=== PATIENT | female | born 1975 | race American Indian/Alaskan Native ===

== ENCOUNTER 2016-06-05 04:15 | Emergency (ER) | payer BC ==
[2016-06-05 04:30] VITALS: BP 164/62
--- NOTE | 2016-06-05 06:26 | Emergency Department Report ---
HPI - General Chief Complaint: Back Pain/Injury Time Seen by Provider: 06/05/16 05:31 - HPI HPI: 40-year-old female presents today with back pain that has worsened over the past 2 days. Positive for radiation down left leg. Positive for history of sciatica. Patient states that she took one dose of ibuprofen and leftover Flexeril with some relief. Denies numbness, weakness, paresthesias. Denies fever, chills, nausea, vomiting, chest pain, shortness of breath, abdominal pain. ED Past Medical Hx - Past Medical History Previous Medical History?: Yes Hx Hypertension: Yes Hx Asthma: Yes Additional medical history: chf. - Surgical History Past Surgical History?: Yes Additional Surgical History: c sec x3. - Social History Smoking Status: Never Smoker Substance Use Type: None - Medications Home Medications: Home Medications Medication Instructions Recorded Confirmed Last Taken Type Furosemide [Lasix TAB] 20 mg PO QDAY 03/11/14 03/11/14 03/10/14 History Ibuprofen [Motrin] 800 mg PO Q8H PRN #20 tablet 03/11/14 Unknown Rx Lisinopril [Zestril] 40 mg PO 03/11/14 03/11/14 03/10/14 History Metoprolol [Lopressor TAB] 25 mg PO DAILY 03/11/14 03/11/14 03/10/14 History methOCARBAMOL [Robaxin] 500 mg PO BID #10 tab 03/11/14 Unknown Rx traMADol [Ultram] 50 mg PO Q6HR PRN #14 tablet 03/11/14 Unknown Rx Famotidine [Pepcid] 20 mg PO BID #20 tablet 04/25/16 Unknown Rx diphenhydrAMINE [Benadryl CAP] 25 mg PO Q6HR PRN #25 capsule 04/25/16 Unknown Rx methylPREDNISolone [Medrol] 4 mg PO DAILY #1 tab.ds.pk 04/25/16 Unknown Rx Cyclobenzaprine [Flexeril] 10 mg PO TID PRN #20 tablet 06/05/16 Unknown Rx Ibuprofen [Motrin 800 MG tab] 800 mg PO Q8HR PRN #30 tablet 06/05/16 Unknown Rx Prednisone [predniSONE 10 mg 10 mg PO .TAPER #1 tab.ds.pk 06/05/16 Unknown Rx (6-Day Pack, 21 Tabs)] ED Review of Systems ROS: Stated complaint: BACK PAIN Other details as noted in HPI Constitutional: denies: chills, fever, malaise Eyes: denies: eye pain ENT: denies: ear pain, throat pain, congestion Respiratory: denies: cough, shortness of breath, wheezing Cardiovascular: denies: chest pain, palpitations Endocrine: no symptoms reported Gastrointestinal: denies: abdominal pain, nausea, vomiting Musculoskeletal: back pain Skin: denies: rash Neurological: denies: headache, weakness, numbness, paresthesias Physical Exam - Physical Exam Vital Signs: Vital Signs 06/05/16 04:27 Temperature 98.2 F Pulse Rate 71 Respiratory 18 Rate Blood Pressure 164/62 O2 Sat by Pulse 100 Oximetry Physical Exam: GENERAL: The patient is well-developed and well-nourished. Patient is in NAD. HEAD: Normocephalic. Atraumatic. CHEST/LUNGS: Clear to auscultation throughout. HEART/CARDIOVASCULAR: Regular rate and rhythm. No murmurs, rubs or gallops. ABDOMEN: Abdomen is soft, nontender. No guarding or rebound tenderness. EXTREMITIES: Full range of motion. Peripheral pulses intact. Capillary refill less than 2 seconds. BACK: Full ROM. No midline tenderness. Bilateral paraspinal tenderness of lumbar region. Tenderness to palpation of the left sciatic notch. Negative straight leg raise bilaterally. NEURO: Alert and oriented x 3. Normal gait. ED Course Vital Signs 06/05/16 04:27 Temperature 98.2 F Pulse Rate 71 Respiratory 18 Rate Blood Pressure 164/62 O2 Sat by Pulse 100 Oximetry ED Medical Decision Making - Lab Data Vital Signs 06/05/16 04:27 Temperature 98.2 F Pulse Rate 71 Respiratory 18 Rate Blood Pressure 164/62 O2 Sat by Pulse 100 Oximetry - Medical Decision Making 40-year-old female presents today with lower back pain and left-sided sciatica. Patient is in no acute distress at this time. She will be discharged home and is encouraged to follow up with a primary care provider. She will be sent home on Flexeril, ibuprofen, steroid pack and is encouraged to return to the emergency room for any worsening symptoms. Critical care attestation.: If time is entered above; I have spent that time in minutes in the direct care of this critically ill patient, excluding procedure time. ED Disposition Clinical Impression: Low back pain Qualifiers: Chronicity: acute Back pain laterality: bilateral Sciatica presence: with sciatica Sciatica laterality: sciatica of left side Qualified Code(s): M54.42 - Lumbago with sciatica, left side Disposition: DISCHARGED TO HOME OR SELFCARE Is pt being admited?: No Does the pt Need Aspirin: No Condition: Stable Instructions: Sciatica (ED) Additional Instructions: Follow-up with primary care provider. Return to emergency department if symptoms worsen. Prescriptions: Cyclobenzaprine [Flexeril] 10 mg PO TID PRN #20 tablet PRN Reason: Muscle Spasm Ibuprofen [Motrin 800 MG tab] 800 mg PO Q8HR PRN #30 tablet PRN Reason: Pain Prednisone [predniSONE 10 mg (6-Day Pack, 21 Tabs)] 10 mg PO .TAPER #1 tab.ds.pk Forms: Work/School Release Form(ED) Time of Disposition: 06:24
== END 2016-06-05 06:39 | disposition home or self-care (01) ==
LOC: ED 04:15
DX: M54.42 Lumbago with sciatica, left side (principal); I10 Essential (primary) hypertension; J45.909 Unspecified asthma, uncomplicated; I50.9 Heart failure, unspecified
CPT/HCPCS: 99282

== ENCOUNTER 2016-07-27 06:13 | Emergency (ER) | payer BC ==
--- NOTE | 2016-07-27 07:29 | XRay Report ---
LEFT FOOT, 2 views: History: Left mid foot pain. The bony architecture is intact. Bony alignment is normal. No soft tissue abnormalities are seen. The joint spaces appear preserved. Tiny plantar spur. IMPRESSION: Unremarkable left foot.
--- NOTE | 2016-07-27 07:29 | XRay Report ---
LEFT ANKLE, 3 views: History: Left heel and ankle pain.. The bones are well mineralized with normal bony contours and joint alignment. No fractures or destructive changes are noted. There is mild diffuse soft tissue swelling or edema. Tiny plantar spur. IMPRESSION: No acute osseous injury or significant joint pathology. Tiny plantar spur.
--- NOTE | 2016-07-27 07:30 | XRay Report ---
LEFT KNEE, 3 views: History: Left knee pain. The bony architecture is intact without evidence of fracture or dislocation. No significant soft tissue abnormality is seen. IMPRESSION: Normal left knee.
[2016-07-27 07:40] VITALS: BP 147/97
--- NOTE | 2016-07-27 08:10 | Emergency Department Report ---
ED Extremity Problem HPI - General Chief complaint: Extremity Injury, Lower Stated complaint: L ankle pain Time Seen by Provider: 07/27/16 07:46 Source: patient Mode of arrival: Ambulatory Limitations: No Limitations - History of Present Illness Initial comments: PT reports intermittent L ankle pain. 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 PT states she has to wear clogs. PT states the pain was gradual ant intermittent and she has mentioned it to her PCP and she was advised weight loss. PT states over the last 2 months the pain has increased. PT states over the last 3-4 days, her L knee has been hurting. PT states it hurts to walk. PT denies injury or trauma. PT has tried otc medications for this problem but no over all improvement, slight temporary relief MD Complaint: extremity pain, joint paint -: Gradual Location: left History of Same: Yes Severity scale (0 -10): 10 Quality: constant Consistency: constant Improves with: elevation, medication, rest Worsens with: weight bearing, walking Associated Symptoms: denies other symptoms - Related Data Home Medications Medication Instructions Recorded Confirmed Last Taken Furosemide [Lasix TAB] 20 mg PO QDAY 03/11/14 03/11/14 03/10/14 Lisinopril [Zestril TAB] 40 mg PO 03/11/14 03/11/14 03/10/14 Metoprolol [Lopressor TAB] 25 mg PO DAILY 03/11/14 03/11/14 03/10/14 Previous Rx's Medication Instructions Recorded Last Taken Type Ibuprofen [Motrin] 600 mg PO Q8H PRN #15 tablet 07/27/16 Unknown Rx methOCARBAMOL [Robaxin TAB] 500 mg PO Q6H PRN #12 tablet 07/27/16 Unknown Rx traMADol [Ultram] 50 mg PO Q6HR PRN #10 tablet 07/27/16 Unknown Rx Allergies Allergy/AdvReac Type Severity Reaction Status Date / Time lisinopril AdvReac Unknown Verified 04/25/16 08:48 ED Review of Systems ROS: Stated complaint: Other details as noted in HPI Comment: All other systems reviewed and negative Respiratory: denies: shortness of breath Cardiovascular: denies: chest pain Musculoskeletal: arthralgia, other (on lasix for edema ) Skin: denies: rash, change in color ED Past Medical Hx - Past Medical History Hx Hypertension: Yes Hx Asthma: Yes Additional medical history: chf. - Surgical History Additional Surgical History: c sec x3. - Social History Smoking Status: Never Smoker Substance Use Type: None - Medications Home Medications: Home Medications Medication Instructions Recorded Confirmed Last Taken Type Furosemide [Lasix TAB] 20 mg PO QDAY 03/11/14 03/11/14 03/10/14 History Lisinopril [Zestril TAB] 40 mg PO 03/11/14 03/11/14 03/10/14 History Metoprolol [Lopressor TAB] 25 mg PO DAILY 03/11/14 03/11/14 03/10/14 History Ibuprofen [Motrin] 600 mg PO Q8H PRN #15 tablet 07/27/16 Unknown Rx methOCARBAMOL [Robaxin TAB] 500 mg PO Q6H PRN #12 tablet 07/27/16 Unknown Rx traMADol [Ultram] 50 mg PO Q6HR PRN #10 tablet 07/27/16 Unknown Rx ED Physical Exam - General Limitations: No Limitations General appearance: alert, in no apparent distress, obese - Head Head exam: Present: atraumatic, normocephalic - Eye Eye exam: Present: normal appearance - ENT ENT exam: Present: normal exam - Neck Neck exam: Present: normal inspection - Respiratory Respiratory exam: Present: normal lung sounds bilaterally. Absent: respiratory distress, wheezes, accessory muscle use - Cardiovascular Cardiovascular Exam: Present: regular rate, normal heart sounds - Rectal Rectal exam: Present: deferred - Extremities Exam Extremities exam: Present: normal inspection, normal capillary refill. Absent: calf tenderness - Expanded Lower Extremity Exam Left Knee exam: Present: normal inspection, full ROM. Absent: tenderness Lower Leg exam: Present: normal inspection. Absent: tenderness, ecchymosis, dislocation (Heller's test negative nuris ), Michelle's sign Ankle exam: Present: normal inspection, full ROM. Absent: tenderness (pt reports pain to post L ankle. no ttp ), ecchymosis, deformity Foot/Toe exam: Present: normal inspection. Absent: tenderness, swelling, calcaneal tenderness Neuro vascular tendon exam: Present: no vascular compromise. Absent: pulse deficit Gait: Positive: observed and normal - Back Exam Back exam: Present: normal inspection - Neurological Exam Neurological exam: Present: alert, oriented X3 - Psychiatric Psychiatric exam: Present: normal affect, normal mood - Skin Skin exam: Present: warm, dry, intact ED Course Vital Signs 07/27/16 06:13 Temperature 98.1 F Pulse Rate 70 Respiratory 16 Rate Blood Pressure 147/97 O2 Sat by Pulse 100 Oximetry - Reevaluation(s) Reevaluation #1: 07/27/16 08:16 PT aware of XR results and plan of care. PT has no questions at this time. PT is aware she will need to follow up with her PCP. PT is aware that if her pain persists, she may need further imaging (MRI) or physical therapy - Pulse Oximetry Interpretation Digit-Finger Initial Pulse Oximetry Readin Actions Taken: none ED Medical Decision Making - Radiology Data Radiology results: report reviewed NAP on plain films of L ankle, L knee, or L foot - Medical Decision Making PT with intermittent L ankle pain, worse with ambulating. PT reports gait change due to ankle pain. Pt has negative Michelle's sign and negative Heller's test. PT stable for outpt follow up. - Differential Diagnosis stress fx, over use, tendonitis Critical care attestation.: If time is entered above; I have spent that time in minutes in the direct care of this critically ill patient, excluding procedure time. ED Disposition Clinical Impression: Left knee pain Qualifiers: Chronicity: acute Qualified Code(s): M25.562 - Pain in left knee Left ankle pain Qualifiers: Chronicity: chronic Qualified Code(s): M25.572 - Pain in left ankle and joints of left foot; G89.29 - Other chronic pain Disposition: DISCHARGED TO HOME OR SELFCARE Is pt being admited?: No Does the pt Need Aspirin: No Condition: Stable Instructions: Achilles Tendinitis (ED), Musculoskeletal Pain (ED), Knee Pain ( ED) Additional Instructions: RICE Wear compression socks when up and active loosely wrap PIYUSH wrap on L knee and ankle for support Follow up with PCP in 3-5 days May return to work this week, if you wear good supportive shoes (tennis shoes) No clogs, slippers, flip flops No driving or ETOH with Ultram or Robaxin Referrals: LORI TELLEZ MD [Primary Care Provider] - 3-5 Days Time of Disposition: 08:26
== END 2016-07-27 08:50 | disposition home or self-care (01) ==
LOC: ED 06:13
DX: M25.572 Pain in left ankle and joints of left foot (principal); M25.562 Pain in left knee; G89.29 Other chronic pain; J45.909 Unspecified asthma, uncomplicated; I50.9 Heart failure, unspecified; Z88.8 Allergy status to other drugs, medicaments and biological substances; Z98.890 Other specified postprocedural states

== ENCOUNTER 2016-09-25 06:54 | Emergency (ER) | payer BC ==
[2016-09-25 07:03] VITALS: BP 157/101
--- NOTE | 2016-09-25 07:16 | Emergency Department Report ---
Minor Respiratory - HPI Chief Complaint: Upper Respiratory Infection Stated Complaint: COUGH Time Seen by Provider: 09/25/16 07:10 Duration: 3 Days Pain Location: Chest (after coughing , pain is sharp) Minor Respiratory: Yes Sore Throat, Yes Able to Tolerate Fluids, Yes Cough, Yes Sick Contacts, Yes Chest Pain (with cough), Yes Shortness of Breath, No Rhinorrhea, No Ear Pain (ear pressure), No Hemoptysis, No Fever Other History: 41 year old female that comes in for cough, sob that started . She reports that she has been wheezing alittle. She has a history of Asthma. She has been using her inhaler more often. Denies any fever or chill. She does admit to working around someone with cold sx. ED Review of Systems ROS: Stated complaint: COUGH Other details as noted in HPI Constitutional: denies: chills, fever Eyes: denies: eye pain, eye discharge, vision change ENT: denies: ear pain, throat pain Respiratory: cough, shortness of breath, wheezing Cardiovascular: chest pain (with cough). denies: palpitations Endocrine: no symptoms reported Gastrointestinal: denies: abdominal pain, nausea, diarrhea Genitourinary: denies: urgency, dysuria, discharge Musculoskeletal: denies: back pain, joint swelling, arthralgia Skin: denies: rash, lesions Neurological: denies: headache, weakness, paresthesias Psychiatric: denies: anxiety, depression Hematological/Lymphatic: denies: easy bleeding, easy bruising ED Past Medical Hx - Past Medical History Previous Medical History?: Yes Hx Hypertension: Yes Hx Asthma: Yes Additional medical history: chf. - Surgical History Past Surgical History?: Yes Additional Surgical History: c sec x3. - Social History Smoking Status: Never Smoker Substance Use Type: Alcohol - Medications Home Medications: Home Medications Medication Instructions Recorded Confirmed Last Taken Type Furosemide [Lasix TAB] 20 mg PO QDAY 03/11/14 03/11/14 03/10/14 History Metoprolol [Lopressor TAB] 25 mg PO DAILY 03/11/14 03/11/14 03/10/14 History ALBUTEROL NEB's [Proventil 0.083% 2.5 mg IH TID PRN #1 box 09/25/16 Unknown Rx NEBS] Acetaminophen/Codeine [Tylenol 1 tab PO Q4HR PRN #20 tablet 09/25/16 Unknown Rx /Codeine # 3 tab] Minor Respiratory Exam - Exam General: Vital signs noted. No distress. Alert and acting appropriately. HEENT: No Pharyngeal Erythema, No Pharyngeal Exudates, No Moist Mucous Membranes , No Rhinorrhea, No Conjuctival Injection, No Frontal Tenderness, No Maxillary Tenderness Ear: Neither TM Bulge, Neither TM Erythema, Neither EAC Pain, Neither EAC Discharge Neck: Yes Supple, No Adenopathy Lungs: Yes Good Air Exchange, Yes Wheezes, Yes Cough, No Ronchi, No Stridor, No Labored Respirations, No Retractions, No Use of Accessory Muscles, No Other Abnormal Lung Sounds Heart: Yes Regular, No Murmur Abdomen: No Tenderness, No Peritoneal Signs, No Normal Bowel Sounds Skin: No Rash, No Edema Neurologic: Alert and oriented, no deficits. Musculoskeletal: Unremarkable. ED Course Vital Signs 09/25/16 07:00 Temperature 97.7 F Pulse Rate 87 Respiratory 18 Rate Blood Pressure 157/101 [Right] O2 Sat by Pulse 99 Oximetry ED Medical Decision Making - Medical Decision Making Patient's been evaluated by this provider fast track. Discussed with patient that we will refill her albuterol nebulizer solution. We will give her Tylenol 3 for cough suppressant and pain management. 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 Patient verbalized understanding Critical care attestation.: If time is entered above; I have spent that time in minutes in the direct care of this critically ill patient, excluding procedure time. ED Disposition Clinical Impression: Asthma Qualifiers: Asthma severity: unspecified severity Asthma complication type: uncomplicated Qualified Code(s): J45.909 - Unspecified asthma, uncomplicated Disposition: DISCHARGED TO HOME OR SELFCARE Is pt being admited?: No Does the pt Need Aspirin: No Condition: Stable Additional Instructions: Use the Tylenol with codeine for cough suppressant and chest pain from cough. Follow-up with her primary care provider if symptoms persist or does not improve. Using nebulizer treatments as described. 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 Prescriptions: Acetaminophen/Codeine [Tylenol /Codeine # 3 tab] 1 tab PO Q4HR PRN #20 tablet PRN Reason: Pain ALBUTEROL NEB's [Proventil 0.083% NEBS] 2.5 mg IH TID PRN #1 box PRN Reason: Wheezing Referrals: your,provider [Other] - 3-5 Days Forms: Work/School Release Form(ED)
== END 2016-09-25 08:15 | disposition home or self-care (01) ==
LOC: ED 06:54
DX: J45.909 Unspecified asthma, uncomplicated (principal); I10 Essential (primary) hypertension
CPT/HCPCS: 99282

== ENCOUNTER 2016-10-04 07:27 | Outpatient (CLI) | payer BC ==
--- NOTE | 2016-10-04 09:06 | Mammography Report ---
BILATERAL MAMMOGRAM with CAD: HISTORY:Cancer screening. Comparison study is dated July 06, 2012. FINDINGS: The breasts are almost entirely fat (<25% glandular). No mass, distortion, suspicious calcification, or skin change is seen. IMPRESSION: Negative mammogram. There is no mammographic evidence of malignancy. RECOMMENDATION: Follow-up per ACS guidelines. BI-RADS CATEGORY: 1 = Negative ACR BI-RADS MAMMOGRAPHIC CODES: 0 = Needs additional imaging evaluation; 1 = Negative; 2 = Benign; 3 = Probably benign; 4 = Suspicious; 5 = Malignant; 6 = Known biopsy-proven malignancy COMMENT: 1. Dense breast tissue, i.e., adenosis, fibrocystic changes, etc., may obscure an underlying neoplasm. 2. Approximately 10% of cancers are not detected with mammography. 3. A negative mammography report should not delay biopsy if a clinically suspicious mass is present. COMMENT: Patient follow-up letters are generated in [employer].
== END 2016-10-04 07:28 | disposition home or self-care (01) ==
LOC: MAMMO 07:27
PROVIDERS: ATTEND Obstetrics & Gynecology
DX: Z12.31 Encounter for screening mammogram for malignant neoplasm of breast (principal)
CPT/HCPCS: 77067; G0202

== ENCOUNTER 2016-11-01 08:33 | Outpatient (CLI) | payer BC ==
--- NOTE | 2016-11-01 10:22 | Ultrasound Report ---
Transabdominal and transvaginal pelvic ultrasound. History: Menorrhagia/dysmenorrhea. Findings: The uterus measures 11.6 x 5.4 x 6.4 cm. There is a heterogeneous round mass in the anterior upper uterine body measuring 1.6 x 1.9 cm. Endometrial echo measures 16 mm in diameter. The right ovary is normal. The left ovary is not identified, but no left adnexal masses are seen. There is no fluid within the cul-de-sac. Impression: Small uterine fibroid.
== END 2016-11-01 08:34 | disposition home or self-care (01) ==
LOC: SPVWC 08:33
PROVIDERS: ATTEND Obstetrics & Gynecology
DX: D25.9 Leiomyoma of uterus, unspecified (principal)
CPT/HCPCS: 76830; 76856

== ENCOUNTER 2016-12-24 21:57 | Emergency (ER) | payer BC ==
[2016-12-24 22:12] VITALS: BP 164/101
--- NOTE | 2016-12-24 23:41 | Emergency Department Report ---
ED Extremity Problem HPI - General Chief complaint: Extremity Injury, Lower Stated complaint: KNEE PAIN Source: patient Mode of arrival: Ambulatory Limitations: No Limitations - History of Present Illness MD Complaint: joint paint (aggressively worsening right knee pain, atraumatic. Denies calf pain shortness of breath or inspiratory chest pain.) -: Gradual, week(s) Location: right, knee Radiation: none Severity scale (0 -10): 6 Quality: aching Consistency: constant Worsens with: weight bearing, walking Associated Symptoms: denies other symptoms - Related Data Home Medications Medication Instructions Recorded Confirmed Last Taken Furosemide [Lasix TAB] 20 mg PO QDAY 03/11/14 03/11/14 03/10/14 Metoprolol [Lopressor TAB] 25 mg PO DAILY 03/11/14 03/11/14 03/10/14 Previous Rx's Medication Instructions Recorded Last Taken Type ALBUTEROL NEB's [Proventil 0.083% 2.5 mg IH TID PRN #1 box 09/25/16 Unknown Rx NEBS] Acetaminophen/Codeine [Tylenol 1 tab PO Q4HR PRN #20 tablet 09/25/16 Unknown Rx /Codeine # 3 tab] Allergies Allergy/AdvReac Type Severity Reaction Status Date / Time pineapple Allergy Hives Unverified 10/04/16 07:28 lisinopril AdvReac Unknown Verified 04/25/16 08:48 ED Review of Systems ROS: Stated complaint: KNEE PAIN Other details as noted in HPI Constitutional: no symptoms reported Eyes: denies: eye pain, eye discharge, vision change ENT: denies: ear pain, throat pain Respiratory: denies: cough, shortness of breath, SOB with exertion, SOB at rest , wheezing Cardiovascular: denies: chest pain, palpitations, dyspnea on exertion, orthopnea , edema, syncope Gastrointestinal: denies: abdominal pain, nausea, vomiting, diarrhea Musculoskeletal: arthralgia. denies: back pain, joint swelling Skin: denies: rash, lesions Neurological: denies: headache, weakness, numbness, paresthesias ED Past Medical Hx - Past Medical History Previous Medical History?: Yes Hx Hypertension: Yes Hx Asthma: Yes Additional medical history: chf. - Surgical History Past Surgical History?: Yes Additional Surgical History: c sec x3. - Social History Smoking Status: Former Smoker Substance Use Type: None - Medications Home Medications: Home Medications Medication Instructions Recorded Confirmed Last Taken Type Furosemide [Lasix TAB] 20 mg PO QDAY 03/11/14 03/11/14 03/10/14 History Metoprolol [Lopressor TAB] 25 mg PO DAILY 03/11/14 03/11/14 03/10/14 History ALBUTEROL NEB's [Proventil 0.083% 2.5 mg IH TID PRN #1 box 09/25/16 Unknown Rx NEBS] Acetaminophen/Codeine [Tylenol 1 tab PO Q4HR PRN #20 tablet 09/25/16 Unknown Rx /Codeine # 3 tab] ED Physical Exam - General Limitations: No Limitations General appearance: alert, in no apparent distress - Head Head exam: Present: atraumatic, normocephalic - Eye Eye exam: Present: normal appearance, PERRL, EOMI - ENT ENT exam: Present: mucous membranes moist - Neck Neck exam: Present: normal inspection - Respiratory Respiratory exam: Present: normal lung sounds bilaterally. Absent: respiratory distress - Cardiovascular Cardiovascular Exam: Present: regular rate - GI/Abdominal GI/Abdominal exam: Present: soft. Absent: distended, tenderness, guarding, rebound - Extremities Exam Extremities exam: Present: other (no ligamentous instability, no erythema, no swelling, positive Apley test. Negative drawer test. Neurovascular motor intact distal to pain good 2 point discrimination.) - Back Exam Back exam: Present: normal inspection. Absent: CVA tenderness (R), CVA tenderness (L) - Neurological Exam Neurological exam: Present: alert, oriented X3, CN II-XII intact, normal gait - Skin Skin exam: Present: warm, dry, intact, normal color. Absent: rash, erythema ED Course Vital Signs 12/24/16 22:07 Temperature 98.5 F Pulse Rate 74 Respiratory 18 Rate Blood Pressure 164/101 O2 Sat by Pulse 99 Oximetry - Reevaluation(s) Reevaluation #1: 12/24/16 23:48 Discussed findings with patient , patient states she needs no prescriptions or work note. Just wanted an x-ray so that she can then follow up with Orth O and proceed to MRI. Critical care attestation.: If time is entered above; I have spent that time in minutes in the direct care of this critically ill patient, excluding procedure time. ED Disposition Clinical Impression: Right knee pain Disposition: DC-01 TO HOME OR SELFCARE Is pt being admited?: No Condition: Stable Instructions: Knee Pain (ED) Referrals: EDINSON LIMON MD [Primary Care Provider] - 3-5 Days SHAN RODRIGUEZ MD [Staff Physician] - 3-5 Days
--- NOTE | 2016-12-25 00:07 | XRay Report ---
FINAL REPORT PROCEDURE: XR KNEE 1-2V LT TECHNIQUE: LEFT knee radiographs, AP and lateral views. CPT 43698 HISTORY: left knee pain COMPARISON: No prior studies are available for comparison. FINDINGS: Fracture (s) and/or Dislocation(s): None . Alignment: Normal . Joint space(s): Normal . Soft tissues: Normal . Bone mineralization: Normal . Foreign bodies: None . IMPRESSION: Normal Examination.
== END 2016-12-25 00:05 | disposition home or self-care (01) ==
LOC: ED 21:57
DX: M25.562 Pain in left knee (principal); M25.561 Pain in right knee; I10 Essential (primary) hypertension; J45.909 Unspecified asthma, uncomplicated; Z87.891 Personal history of nicotine dependence; Z91.018 Allergy to other foods; Z88.8 Allergy status to other drugs, medicaments and biological substances; X58.XXXA Exposure to other specified factors, initial encounter; Y93.89 Activity, other specified; Y99.8 Other external cause status; Y92.89 Other specified places as the place of occurrence of the external cause
CPT/HCPCS: 99283

== ENCOUNTER 2018-11-05 20:22 | Emergency (ER) | payer BC, OTHER ==
[2018-11-05] MEDS ORDERED: PROVENTIL IH ONE (20:35)
[2018-11-05] MEDS ORDERED: ATROVENT IH ONE (20:35)
[2018-11-05] MEDS ORDERED: DECADRON IM ONE (20:35)
[2018-11-05 20:36] VITALS: BP 167/92
--- NOTE | 2018-11-05 20:37 | Emergency Department Report ---
Blank Doc - Documentation Documentation: This is a 43-year-old female that presents with wheezing and cough. This initial assessment/diagnostic orders/clinical plan/treatment(s) is/are subject to change based on patient's health status, clinical progression and re- assessment by fellow clinical providers in the ED. Further treatment and workup at subsequent clinical providers discretion. Patient/guardians urged not to elope from the ED as their condition may be serious if not clinically assessed and managed. Initial orders include: 1- Patient sent to [facility] for further evaluation and treatment 2- breathing treatment/steroids 3- CXR
--- NOTE | 2018-11-05 21:27 | Emergency Department Report ---
Minor Respiratory - HPI Chief Complaint: Upper Respiratory Infection Stated Complaint: ASTHMA WHEEZING COUGH Time Seen by Provider: 11/05/18 20:34 Duration: 3 Days Severity: moderate Minor Respiratory: Yes Able to Tolerate Fluids, Yes Cough, Yes Shortness of Breath, No Rhinorrhea, No Sore Throat, No Ear Pain, No Sick Contacts, No Hemoptysis, No Chest Pain, No Fever Other History: This is a 43-year-old -Polish female presents to the emergency room with shortness of breath and wheezing. Past medical history of asthma and hypertension. Patient states symptoms started 3 days ago with a productive cough, she feels, shortness of breath. Patient reports shortness of breath with exertion over the past 24 hours. She was taken cold and cough medication and using nebulizer treatments for the past 2 days. Patient states she will have relief as long as she was under her nebulizer machine and his symptoms would return. Patient states she called her primary care physician Dr. Limon and unable to make an appointment. She denies chest pain, palpitations, weakness, nausea, or vomiting. ED Review of Systems ROS: Stated complaint: ASTHMA WHEEZING COUGH Other details as noted in HPI Constitutional: chills. denies: fever ENT: denies: ear pain, throat pain Respiratory: cough, shortness of breath, SOB with exertion. denies: wheezing Cardiovascular: denies: chest pain, palpitations Gastrointestinal: denies: abdominal pain, nausea, diarrhea Musculoskeletal: denies: back pain, joint swelling, arthralgia Skin: denies: rash, lesions Neurological: denies: headache, weakness, paresthesias Psychiatric: denies: anxiety, depression ED Past Medical Hx - Past Medical History Previous Medical History?: Yes Hx Hypertension: Yes Hx Asthma: Yes Additional medical history: fam hx CHF - Surgical History Additional Surgical History: c sec x3. - Social History Smoking Status: Never Smoker Substance Use Type: Alcohol - Medications Home Medications: Home Medications Medication Instructions Recorded Confirmed Last Taken Type Furosemide [Lasix TAB] 20 mg PO QDAY 03/11/14 03/11/14 03/10/14 History Metoprolol [Lopressor TAB] 25 mg PO DAILY 03/11/14 03/11/14 03/10/14 History ALBUTEROL NEB's [Proventil 0.083% 2.5 mg IH TID PRN #1 box 09/25/16 Unknown Rx NEBS] Acetaminophen/Codeine [Tylenol 1 tab PO Q4HR PRN #20 tablet 09/25/16 Unknown Rx /Codeine # 3 tab] ALBUTEROL Inhaler (OR & NICU) 2 puff IH QID PRN #1 inhalation 11/05/18 Unknown Rx [ProAir HFA Inhaler] Benzonatate [Tessalon Perles] 100 mg PO Q8HR PRN #30 capsule 11/05/18 Unknown Rx Prednisone [predniSONE 10 mg 10 mg PO .TAPER #1 tab.ds.pk 11/05/18 Unknown Rx (6-Day Pack, 21 Tabs)] Minor Respiratory Exam - Exam General: Vital signs noted. No distress. Alert and acting appropriately. HEENT: Yes Moist Mucous Membranes, Yes Rhinorrhea (turbinate is turbinates mildly congested with clear discharge), No Pharyngeal Erythema, No Pharyngeal Exudates, No Conjuctival Injection, No Frontal Tenderness, No Maxillary Tenderness Ear: Neither TM Bulge, Neither TM Erythema, Neither EAC Pain, Neither EAC Discharge Neck: Yes Supple, No Adenopathy Lungs: Yes Wheezes, No Good Air Exchange, No Ronchi, No Stridor, No Cough, No Labored Respirations, No Retractions, No Use of Accessory Muscles, No Other Abnormal Lung Sounds Heart: Yes Regular, No Murmur Abdomen: Yes Normal Bowel Sounds, No Tenderness, No Peritoneal Signs Skin: No Rash, No Edema Neurologic: Alert and oriented, no deficits. Musculoskeletal: Unremarkable. ED Course Vital Signs 11/05/18 20:27 Temperature 98.7 F Pulse Rate 95 H Respiratory 18 Rate Blood Pressure 167/92 ED Medical Decision Making - Radiology Data Radiology results: report reviewed PROCEDURE: XR CHEST ROUTINE 2V TECHNIQUE: PA and lateral chest radiographs were obtained. HISTORY: cough COMPARISONS: None. FINDINGS: Heart: Normal. Mediastinum/Vessels: Normal. Lungs/Pleural space: Normal. Bony thorax: No acute osseous abnormality. IMPRESSION: Normal examination. - Medical Decision Making Patient examined by me and in no acute distress. Past medical history of hypertension and asthma. Vitals stable. Given Proventil, Atrovent treatment once and Decadron 10 mg IM once in ER. Wheezes resolved and patient reports feeling better. Asthma exacerbation and upper respiratory infection. Start prednisone taper, albuterol, and Tessalon Perles. Discharged home stable. Encouraged to do supportive care for URI. No medication ordered. Return to work tomorrow. Critical care attestation.: If time is entered above; I have spent that time in minutes in the direct care of this critically ill patient, excluding procedure time. ED Disposition Clinical Impression: Cough Asthma exacerbation Qualifiers: Asthma severity: mild Asthma persistence: intermittent Qualified Code(s): J45.21 - Mild intermittent asthma with (acute) exacerbation Upper respiratory infection Qualifiers: URI type: acute nasopharyngitis (common cold) Qualified Code(s): J00 - Acute nasopharyngitis [common cold] Disposition: TO HOME OR SELFCARE Is pt being admited?: No Does the pt Need Aspirin: No Condition: Stable Instructions: Asthma (ED), Upper Respiratory Infection (ED), Cold Symptoms (ED) Additional Instructions: Complete full course of prednisone steroids as prescribed. Symptoms are most likely coming from for infection. These infections typically do not give antibiotics. He is to take ibuprofen every 6 hours alternated with Tylenol every 4 hours pain. You may not feel like eating which is to be expected. Try eating a bland diet as tolerated. Wash hands frequently. F/U with Primary Care Provider. Return to ER if fever, SOB, or difficulty breathing after 48 hours of supportive care. Prescriptions: Prednisone [predniSONE 10 mg (6-Day Pack, 21 Tabs)] 10 mg PO .TAPER #1 tab.ds.pk ALBUTEROL Inhaler (OR & NICU) [ProAir HFA Inhaler] 2 puff IH QID PRN #1 inhalation PRN Reason: Shortness Of Breath Benzonatate [Tessalon Perles] 100 mg PO Q8HR PRN #30 capsule PRN Reason: Cough Referrals: EDINSON LIMON MD [Staff Physician] - 3-5 Days Forms: Work/School Release Form(ED) Time of Disposition: 22:51
--- NOTE | 2018-11-05 22:38 | XRay Report ---
PROCEDURE: XR CHEST ROUTINE 2V TECHNIQUE: PA and lateral chest radiographs were obtained. HISTORY: cough COMPARISONS: None. FINDINGS: Heart: Normal. Mediastinum/Vessels: Normal. Lungs/Pleural space: Normal. Bony thorax: No acute osseous abnormality. IMPRESSION: Normal examination. This document is electronically signed by Pepe Palmer MD., November 05 2018 10:36:19 PM ET
== END 2018-11-05 22:56 | disposition home or self-care (01) ==
LOC: ED 20:22
DX: J45.901 Unspecified asthma with (acute) exacerbation (principal); J06.9 Acute upper respiratory infection, unspecified; I10 Essential (primary) hypertension; Z79.899 Other long term (current) drug therapy; Z88.8 Allergy status to other drugs, medicaments and biological substances; Z91.018 Allergy to other foods
CPT/HCPCS: 71046; 94640; 96372; 99283; J1100

== ENCOUNTER 2018-12-10 21:55 | Emergency (ER) | payer OTHER ==
--- NOTE | 2018-12-10 22:08 | Emergency Department Report ---
Blank Doc - Documentation Documentation: This is a 43-year-old female that presents with left ankle pain s/p twisting it. This initial assessment/diagnostic orders/clinical plan/treatment(s) is/are subject to change based on patient's health status, clinical progression and re- assessment by fellow clinical providers in the ED. Further treatment and workup at subsequent clinical providers discretion. Patient/guardians urged not to elope from the ED as their condition may be serious if not clinically assessed and managed. Initial orders include: 1- Patient sent to [facility] for further evaluation and treatment 2- xray
[2018-12-10 22:11] VITALS: BP 189/86
--- NOTE | 2018-12-10 23:30 | XRay Report ---
LEFT ANKLE, 3 VIEWS 03/12/2019 INDICATION / CLINICAL INFORMATION: pain. COMPARISON: None available. FINDINGS: No skeletal or soft tissue abnormality. Ankle mortise is normal. Signer Name: Joshua Garcia MD Signed: 12/10/2018 11:26 PM Workstation Name: [id number]
[2018-12-10] MEDS ORDERED: IBUPROFEN PO ONE (23:47)
--- NOTE | 2018-12-10 23:47 | Emergency Department Report ---
ED Lower Extremity HPI - General Chief Complaint: Extremity Injury, Lower Stated Complaint: LEFT ANKLE INJURY Time Seen by Provider: 12/10/18 22:07 Source: patient Mode of arrival: Ambulatory Limitations: No Limitations - History of Present Illness Initial Comments: Mrs. Fisher is a very pleasant 43-year-old female who injured her left ankle while walking down the steps. She has moderately severe heel pain radiating to the Achilles tendon. She felt as if her ankle ligament stretched. No other injury. Complaint: ankle injury -: This afternoon Injury: Ankle: Left Place: work Severity: mild Worsens With: weight bearing Context: other (while walking) Associated Symptoms: able to partially bear weight - Related Data Home Medications Medication Instructions Recorded Confirmed Last Taken Furosemide [Lasix TAB] 20 mg PO QDAY 03/11/14 03/11/14 03/10/14 Metoprolol [Lopressor TAB] 25 mg PO DAILY 03/11/14 03/11/14 03/10/14 Previous Rx's Medication Instructions Recorded Last Taken Type ALBUTEROL NEB's [Proventil 0.083% 2.5 mg IH TID PRN #1 box 09/25/16 Unknown Rx NEBS] Acetaminophen/Codeine [Tylenol 1 tab PO Q4HR PRN #20 tablet 09/25/16 Unknown Rx /Codeine # 3 tab] ALBUTEROL Inhaler (OR & NICU) 2 puff IH QID PRN #1 inhalation 11/05/18 Unknown Rx [ProAir HFA Inhaler] Benzonatate [Tessalon Perles] 100 mg PO Q8HR PRN #30 capsule 11/05/18 Unknown Rx Prednisone [predniSONE 10 mg 10 mg PO .TAPER #1 tab.ds.pk 11/05/18 Unknown Rx (6-Day Pack, 21 Tabs)] Allergies Allergy/AdvReac Type Severity Reaction Status Date / Time pineapple Allergy Hives Unverified 10/04/16 07:28 lisinopril AdvReac Unknown Verified 04/25/16 08:48 ED Review of Systems ROS: Stated complaint: LEFT ANKLE INJURY Other details as noted in HPI Constitutional: denies: fever, malaise Skin: denies: rash, lesions Neurological: denies: paresthesias Hematological/Lymphatic: denies: easy bleeding, easy bruising ED Past Medical Hx - Past Medical History Previous Medical History?: Yes Hx Hypertension: Yes Hx Asthma: Yes Additional medical history: fam hx CHF - Surgical History Past Surgical History?: Yes Additional Surgical History: c sec x3., Tubal Ligation 2008 - Social History Smoking Status: Never Smoker - Medications Home Medications: Home Medications Medication Instructions Recorded Confirmed Last Taken Type Furosemide [Lasix TAB] 20 mg PO QDAY 03/11/14 03/11/14 03/10/14 History Metoprolol [Lopressor TAB] 25 mg PO DAILY 03/11/14 03/11/14 03/10/14 History ALBUTEROL NEB's [Proventil 0.083% 2.5 mg IH TID PRN #1 box 09/25/16 Unknown Rx NEBS] Acetaminophen/Codeine [Tylenol 1 tab PO Q4HR PRN #20 tablet 09/25/16 Unknown Rx /Codeine # 3 tab] ALBUTEROL Inhaler (OR & NICU) 2 puff IH QID PRN #1 inhalation 11/05/18 Unknown Rx [ProAir HFA Inhaler] Benzonatate [Tessalon Perles] 100 mg PO Q8HR PRN #30 capsule 11/05/18 Unknown Rx Prednisone [predniSONE 10 mg 10 mg PO .TAPER #1 tab.ds.pk 11/05/18 Unknown Rx (6-Day Pack, 21 Tabs)] ED Physical Exam - General Limitations: No Limitations General appearance: alert, in no apparent distress - Head Head exam: Present: atraumatic, normocephalic - Expanded Lower Extremity Exam Left Lower Leg exam: Present: normal inspection Ankle exam: Present: tenderness. Absent: swelling, abrasion, laceration, crepidus, dislocation, erythema, anterior draw sign Foot/Toe exam: Present: tenderness Neuro vascular tendon exam: Present: no vascular compromise 1 - Tenderness at the Achilles tendon - Neurological Exam Neurological exam: Present: alert, oriented X3 ED Course Vital Signs 12/10/18 22:08 Temperature 97.7 F Pulse Rate 77 Respiratory 20 Rate Blood Pressure 189/86 O2 Sat by Pulse 98 Oximetry ED Lower Extremity MDM - Radiology Data Radiology results: report reviewed left Ankle radiographs no acute process according to radiology report - Medical Decision Making Left ankle sprain with Achilles tendinitis question we recommended nonweightbearing. However patient politely declined crutches. She understands the risk of Achilles tendon tear with full weightbearing. Rusty wrap was applied to the affected extremity under my supervision. After application the extremity was neurovascularly intact with acceptable alignment. Referred to orthopedic surgeon Critical care attestation.: If time is entered above; I have spent that time in minutes in the direct care of this critically ill patient, excluding procedure time. ED Disposition Clinical Impression: High ankle sprain, Achilles tendinitis, left leg Disposition: DC-01 TO HOME OR SELFCARE Is pt being admited?: No Does the pt Need Aspirin: No Condition: Stable Instructions: Achilles Tendinitis (ED), Ankle Sprain (ED) Referrals: SHAN RODRIGUEZ MD [Staff Physician] - 3-5 Days
== END 2018-12-11 | disposition home or self-care (01) ==
LOC: ED 21:55
DX: S93.402A Sprain of unspecified ligament of left ankle, initial encounter (principal); M76.62 Achilles tendinitis, left leg; I10 Essential (primary) hypertension; J45.909 Unspecified asthma, uncomplicated; Z98.51 Tubal ligation status; Z79.899 Other long term (current) drug therapy; Z88.8 Allergy status to other drugs, medicaments and biological substances; Z91.018 Allergy to other foods; X58.XXXA Exposure to other specified factors, initial encounter; Y93.89 Activity, other specified; Y92.89 Other specified places as the place of occurrence of the external cause; Y99.8 Other external cause status
CPT/HCPCS: 99283

== ENCOUNTER 2021-08-07 04:15 | Emergency (ER) | payer OTHER ==
[2021-08-07 04:45] VITALS: BP 173/92
[2021-08-07] MEDS ORDERED: dexAMETHasone 20 MG/5 ML VIAL IM ONE (05:19)
[2021-08-07] MEDS ORDERED: KETOROLAC 60 MG/2 ML INJ IM ONE (05:19)
--- NOTE | 2021-08-07 05:25 | Emergency Department Report ---
ED Back Pain/Injury HPI - General Chief Complaint: Pain General Stated Complaint: RT HIP PAIN Source: patient Limitations: No Limitations - History of Present Illness Initial Comments: Patient is a 46-year-old -[place] female with a history of chronic degenerative lumbar disc disease, morbid obesity, hypertension and asthma who presents to the ED with complaint of acute exacerbation of her chronic low back pain that radiates to the right leg for the last 1 week, worse in the last 2 days. Patient states that she is currently on [place] 5 mg - 325 mg with cyclobenzaprine 10 mg as needed. Patient states that these medications have not helped control her pain. Patient denies dizziness, syncope, fever, chills, dysuria, urinary frequency and urgency, fall, heavy lifting, chest pain or shortness of breath, abdominal pain, numbness and tingling or weakness of lower extremities bilaterally or urinary or bowel incontinence and saddle paresthesia. MD Complaint: back pain (Lower back pain that radiates to the right leg) -: Gradual, year(s) (2) Similar Symptoms Previously: Yes (Chronic low back pain with sciatica) Place: home Radiation: right leg Severity: severe Severity scale (0 -10): 8 Quality: sharp, aching Consistency: constant Improves With: none Worsens With: movement, walking Context: turning/twisting, bending Associated Symptoms: denies other symptoms. denies: confusion, weakness, chest pain, numbness, difficulty walking, cough, difficulty urinating, diaphoresis, constipation, headaches, abdominal pain, loss of appetite, malaise, nausea/vomiting, rash, seizure, shortness of breath - Related Data Home Medications Medication Instructions Recorded Confirmed Last Taken Furosemide [Lasix TAB] 20 mg PO QDAY 03/11/14 03/11/14 03/10/14 Metoprolol [Lopressor TAB] 25 mg PO DAILY 03/11/14 03/11/14 03/10/14 Previous Rx's Medication Instructions Recorded Last Taken Type ALBUTEROL NEB's [Proventil 0.083% 2.5 mg IH TID PRN #1 box 09/25/16 Unknown Rx NEBS] Acetaminophen/Codeine [Tylenol 1 tab PO Q4HR PRN #20 tablet 09/25/16 Unknown Rx /Codeine # 3 tab] Albuterol Mdi (or & Nicu Only) 2 puff IH QID PRN #1 inhalation 11/05/18 Unknown Rx [ProAir HFA Inhaler] Benzonatate [Tessalon Perles] 100 mg PO Q8HR PRN #30 capsule 11/05/18 Unknown Rx Prednisone [predniSONE 10 mg 10 mg PO .TAPER #1 tab.ds.pk 11/05/18 Unknown Rx (6-Day Pack, 21 Tabs)] Gabapentin 300 mg PO QHS PRN #60 cap 08/07/21 Unknown Rx Naproxen 500 mg PO Q12H PRN #30 tab 08/07/21 Unknown Rx predniSONE [Deltasone] 60 mg PO QDAY #15 tab 08/07/21 Unknown Rx Allergies Allergy/AdvReac Type Severity Reaction Status Date / Time latex Allergy Itching Verified 08/07/21 04:41 pineapple Allergy Hives Unverified 10/04/16 07:28 lisinopril AdvReac Unknown Verified 04/25/16 08:48 ED Review of Systems ROS: Stated complaint: RT HIP PAIN Other details as noted in HPI Constitutional: denies: chills, fever Eyes: denies: eye pain, eye discharge, vision change ENT: denies: ear pain, throat pain Respiratory: denies: cough, shortness of breath, wheezing Cardiovascular: denies: chest pain, palpitations Endocrine: no symptoms reported Gastrointestinal: denies: abdominal pain, nausea, vomiting, diarrhea Genitourinary: denies: urgency, dysuria, discharge Musculoskeletal: back pain (lower back pain that radiates to the right leg), arthralgia (Right hip pain). denies: joint swelling Skin: denies: rash, lesions Neurological: denies: headache, weakness, paresthesias Psychiatric: denies: anxiety, depression Hematological/Lymphatic: denies: easy bleeding, easy bruising ED Past Medical Hx - Past Medical History Previous Medical History?: Yes Hx Hypertension: Yes Hx Asthma: Yes Additional medical history: fam hx CHF morbid obesity; - Surgical History Past Surgical History?: Yes Additional Surgical History: c sec x3., Tubal Ligation 2008 - Social History Smoking Status: Never Smoker Substance Use Type: None - Medications Home Medications: Home Medications Medication Instructions Recorded Confirmed Last Taken Type Furosemide [Lasix TAB] 20 mg PO QDAY 03/11/14 03/11/14 03/10/14 History Metoprolol [Lopressor TAB] 25 mg PO DAILY 03/11/14 03/11/14 03/10/14 History ALBUTEROL NEB's [Proventil 0.083% 2.5 mg IH TID PRN #1 box 09/25/16 Unknown Rx NEBS] Acetaminophen/Codeine [Tylenol 1 tab PO Q4HR PRN #20 tablet 09/25/16 Unknown Rx /Codeine # 3 tab] Albuterol Mdi (or & Nicu Only) 2 puff IH QID PRN #1 inhalation 11/05/18 Unknown Rx [ProAir HFA Inhaler] Benzonatate [Tessalon Perles] 100 mg PO Q8HR PRN #30 capsule 11/05/18 Unknown Rx Prednisone [predniSONE 10 mg 10 mg PO .TAPER #1 tab.ds.pk 11/05/18 Unknown Rx (6-Day Pack, 21 Tabs)] Gabapentin 300 mg PO QHS PRN #60 cap 08/07/21 Unknown Rx Naproxen 500 mg PO Q12H PRN #30 tab 08/07/21 Unknown Rx predniSONE [Deltasone] 60 mg PO QDAY #15 tab 08/07/21 Unknown Rx ED Physical Exam - General Limitations: No Limitations General appearance: alert, in no apparent distress - Head Head exam: Present: atraumatic, normocephalic, normal inspection - Eye Eye exam: Present: normal appearance, PERRL, EOMI Pupils: Present: normal accommodation - ENT ENT exam: Present: normal exam, normal orophraynx, mucous membranes moist, TM's normal bilaterally, normal external ear exam - Neck Neck exam: Present: normal inspection, full ROM. Absent: tenderness - Respiratory Respiratory exam: Present: normal lung sounds bilaterally. Absent: respiratory distress, wheezes, rales, rhonchi, stridor, chest wall tenderness, accessory muscle use, decreased breath sounds, prolonged expiratory - Cardiovascular Cardiovascular Exam: Present: regular rate, normal rhythm, normal heart sounds. Absent: systolic murmur, diastolic murmur, rubs, gallop - GI/Abdominal GI/Abdominal exam: Present: soft, normal bowel sounds. Absent: tenderness, guarding, rebound, hyperactive bowel sounds, organomegaly, mass - Extremities Exam Extremities exam: Present: normal inspection, full ROM, tenderness (Palpable right hip tenderness), normal capillary refill. Absent: joint swelling - Back Exam Back exam: Present: normal inspection, full ROM, tenderness (Palpable lumbosacral paraspinal musculoskeletal tenderness), muscle spasm, paraspinal tenderness. Absent: CVA tenderness (R), CVA tenderness (L), vertebral tenderness, rash noted - Neurological Exam Neurological exam: Present: alert, oriented X3, CN II-XII intact, normal gait, reflexes normal - Psychiatric Psychiatric exam: Present: normal affect, normal mood - Skin Skin exam: Present: warm, dry, intact, normal color. Absent: rash ED Course Vital Signs 08/07/21 04:37 Temperature 97.7 F Pulse Rate 72 Respiratory 18 Rate Blood Pressure 173/92 [Left] O2 Sat by Pulse 98 Oximetry ED Medical Decision Making - Medical Decision Making This is a 46-year-old -[place] female with a history of chronic degenerative lumbar disc disease, morbid obesity, hypertension and asthma who presents to the ED with complaint of acute exacerbation of her chronic low back pain that radiates to the right leg for the last 1 week, worse in the last 2 days. Patient states that she is currently on [place] 5 mg - 325 mg with cy clobenzaprine 10 mg as needed. Patient states that these medications have not helped control her pain. In the ED, patient is alert and oriented x3 and is not in any distress. Patient was treated for pain in the ED and on reevaluation, patient's pain is well controlled medication. Patient will discharge home on anti-inflammatory medications and advised to follow-up with her primary care physician in 5 to 7 days for reevaluation or return to the ED immediately if symptoms get worse. - Differential Diagnosis Chronic back pain; chronic sciatica; muscle spasm; lumbar disc disease Critical care attestation.: If time is entered above; I have spent that time in minutes in the direct care of this critically ill patient, excluding procedure time. ED Disposition Clinical Impression: Spasm of muscle of lower back, Lumbar disc disease with radiculopathy Chronic low back pain with right-sided sciatica Qualifiers: Back pain laterality: right Qualified Code(s): M54.41 - Lumbago with sciatica, right side; G89.29 - Other chronic pain Disposition: HOME / SELF CARE / HOMELESS Is pt being admited?: No Does the pt Need Aspirin: No Condition: Stable Instructions: Muscle Cramps and Spasms, [id number], Degenerative Disk Disease, Sciatica, [id number], Chronic Back Pain, [id number], Back Injury Prevention, [id number] Additional Instructions: Your symptoms are likely due to chronic degenerative lumbar disc disease, muscle strain and muscle spasm as well as sciatica pain. Therefore take medication with food, drink plenty fluids and follow-up with your primary care physician in 7 to 10 days for reevaluation. Return to the ED immediately if symptoms get worse. Prescriptions: Gabapentin 300 mg PO QHS PRN #60 cap PRN Reason: sciatica predniSONE [Deltasone] 60 mg PO QDAY #15 tab Naproxen 500 mg PO Q12H PRN #30 tab PRN Reason: Pain , Severe (7-10) Referrals: HUDSON NEVES MD [Staff Physician] - 7-10 days Time of Disposition: 05:28 Print Language: YORUBA
== END 2021-08-07 05:58 | disposition home or self-care (01) ==
LOC: ED 04:15
DX: M54.16 Radiculopathy, lumbar region (principal); M62.830 Muscle spasm of back; M54.41 Lumbago with sciatica, right side; I10 Essential (primary) hypertension; J45.909 Unspecified asthma, uncomplicated; Z98.890 Other specified postprocedural states; Z91.02 Food additives allergy status; Z91.040 Latex allergy status; Z91.09 Other allergy status, other than to drugs and biological substances
CPT/HCPCS: 96372; 99282; J1100; J1885

== ENCOUNTER 2022-01-01 03:03 | Emergency (ER) | payer OTHER ==
[2022-01-01] MEDS ORDERED: dexAMETHasone 20 MG/5 ML VIAL IM ONE (04:46)
[2022-01-01] MEDS ORDERED: KETOROLAC 60 MG/2 ML INJ IM ONE (04:46)
--- NOTE | 2022-01-01 04:46 | Emergency Department Report ---
ED Extremity Problem HPI - General Chief complaint: Extremity Injury, Lower Stated complaint: RIGHT HIP PAIN Source: patient Mode of arrival: Ambulatory Limitations: No Limitations - History of Present Illness Initial comments: Patient is a 46-year-old -[place] female with a history of morbid obesity, chronic low back pain with sciatica, chronic osteoarthritis, hyperten antonio and asthma presents to the ED with complaint of acute exacerbation of her chronic hip pain for the last 2 weeks, worse in the last 2 days. Patient states that the pain is constant and persistent and especially worse in the morning when she wakes up or during movement. Patient states that the pain is typical of her chronic pain due to her chronic osteoarthritis. Patient denies fall, traumatic injury, nausea and vomiting, chest pain or shortness of breath, heavy lifting, numbness and tingling or weakness of lower extremities bilaterally. MD Complaint: extremity pain (right hip pain), joint paint (right hip pain) -: Gradual, year(s) (1) Location: right, lower extremity (right hip pain) History of Same: Yes (chronic pain) -: Yes arthralgia (right hip) Severity scale (0 -10): 8 Quality: aching, sharp Consistency: constant Worsens with: weight bearing, walking, exertion, palpation Associated Symptoms: denies other symptoms, arthralgias. denies: chest pain, shortness of breath, fever, myalgias - Related Data Home Medications Medication Instructions Recorded Confirmed Last Taken Furosemide [Lasix TAB] 20 mg PO QDAY 03/11/14 03/11/14 03/10/14 Metoprolol [Lopressor TAB] 25 mg PO DAILY 03/11/14 03/11/14 03/10/14 Previous Rx's Medication Instructions Recorded Last Taken Type ALBUTEROL NEB's [Proventil 0.083% 2.5 mg IH TID PRN #1 box 09/25/16 Unknown Rx NEBS] Acetaminophen/Codeine [Tylenol 1 tab PO Q4HR PRN #20 tablet 09/25/16 Unknown Rx /Codeine # 3 tab] Albuterol Mdi (or & Nicu Only) 2 puff IH QID PRN #1 inhalation 11/05/18 Unknown Rx [ProAir HFA Inhaler] Benzonatate [Tessalon Perles] 100 mg PO Q8HR PRN #30 capsule 11/05/18 Unknown Rx Prednisone [predniSONE 10 mg 10 mg PO .TAPER #1 tab.ds.pk 11/05/18 Unknown Rx (6-Day Pack, 21 Tabs)] Gabapentin 300 mg PO QHS PRN #60 cap 08/07/21 Unknown Rx Naproxen 500 mg PO Q12H PRN #30 tab 08/07/21 Unknown Rx Ibuprofen [Motrin] 800 mg PO Q8HR PRN #60 tablet 01/01/22 Unknown Rx methOCARBAMOL [Robaxin TAB] 750 mg PO BID PRN #60 tab 01/01/22 Unknown Rx predniSONE [Deltasone] 60 mg PO QDAY #15 tab 01/01/22 Unknown Rx traMADoL [Ultram] 50 mg PO Q6HR PRN #12 tablet 01/01/22 Unknown Rx Allergies Allergy/AdvReac Type Severity Reaction Status Date / Time latex Allergy Itching Verified 08/07/21 04:41 pineapple Allergy Hives Unverified 10/04/16 07:28 lisinopril AdvReac Unknown Verified 04/25/16 08:48 ED Review of Systems ROS: Stated complaint: RIGHT HIP PAIN Other details as noted in HPI Constitutional: denies: chills, fever Eyes: denies: eye pain, eye discharge, vision change ENT: denies: ear pain, throat pain Respiratory: denies: cough, shortness of breath, wheezing Cardiovascular: denies: chest pain, palpitations Endocrine: no symptoms reported Gastrointestinal: denies: abdominal pain, nausea, vomiting, diarrhea Genitourinary: denies: urgency, dysuria, discharge Musculoskeletal: back pain (lower), arthralgia (right hip pain), myalgia. denies: joint swelling Skin: denies: rash, lesions Neurological: denies: headache, weakness, paresthesias Psychiatric: denies: anxiety, depression Hematological/Lymphatic: denies: easy bleeding, easy bruising ED Past Medical Hx - Past Medical History Hx Hypertension: Yes Hx Arthritis: Yes Hx Asthma: Yes Additional medical history: fam hx CHF morbid obesity; - Surgical History Additional Surgical History: c sec x3., Tubal Ligation 2008 - Social History Substance Use Type: Alcohol - Medications Home Medications: Home Medications Medication Instructions Recorded Confirmed Last Taken Type Furosemide [Lasix TAB] 20 mg PO QDAY 03/11/14 03/11/14 03/10/14 History Metoprolol [Lopressor TAB] 25 mg PO DAILY 03/11/14 03/11/14 03/10/14 History ALBUTEROL NEB's [Proventil 0.083% 2.5 mg IH TID PRN #1 box 09/25/16 Unknown Rx NEBS] Acetaminophen/Codeine [Tylenol 1 tab PO Q4HR PRN #20 tablet 09/25/16 Unknown Rx /Codeine # 3 tab] Albuterol Mdi (or & Nicu Only) 2 puff IH QID PRN #1 inhalation 11/05/18 Unknown Rx [ProAir HFA Inhaler] Benzonatate [Tessalon Perles] 100 mg PO Q8HR PRN #30 capsule 11/05/18 Unknown Rx Prednisone [predniSONE 10 mg 10 mg PO .TAPER #1 tab.ds.pk 11/05/18 Unknown Rx (6-Day Pack, 21 Tabs)] Gabapentin 300 mg PO QHS PRN #60 cap 08/07/21 Unknown Rx Naproxen 500 mg PO Q12H PRN #30 tab 08/07/21 Unknown Rx Ibuprofen [Motrin] 800 mg PO Q8HR PRN #60 tablet 01/01/22 Unknown Rx methOCARBAMOL [Robaxin TAB] 750 mg PO BID PRN #60 tab 01/01/22 Unknown Rx predniSONE [Deltasone] 60 mg PO QDAY #15 tab 01/01/22 Unknown Rx traMADoL [Ultram] 50 mg PO Q6HR PRN #12 tablet 01/01/22 Unknown Rx ED Physical Exam - General Limitations: No Limitations General appearance: alert, in no apparent distress - Head Head exam: Present: atraumatic, normocephalic, normal inspection - Eye Eye exam: Present: normal appearance, PERRL, EOMI Pupils: Present: normal accommodation - ENT ENT exam: Present: normal exam, normal orophraynx, mucous membranes moist, TM's normal bilaterally, normal external ear exam - Neck Neck exam: Present: normal inspection, full ROM - Respiratory Respiratory exam: Present: normal lung sounds bilaterally. Absent: respiratory distress, wheezes, rales, rhonchi, chest wall tenderness, accessory muscle use, decreased breath sounds, prolonged expiratory - Cardiovascular Cardiovascular Exam: Present: regular rate, normal rhythm, normal heart sounds. Absent: systolic murmur, diastolic murmur, rubs, gallop - GI/Abdominal GI/Abdominal exam: Present: soft, normal bowel sounds. Absent: tenderness, guarding, rebound, hyperactive bowel sounds, hypoactive bowel sounds, organomegaly, mass - Extremities Exam Extremities exam: Present: normal inspection, full ROM, tenderness (Palpable right hip pain), normal capillary refill. Absent: pedal edema, joint swelling, calf tenderness - Back Exam Back exam: Present: normal inspection - Neurological Exam Neurological exam: Present: alert, oriented X3, CN II-XII intact, normal gait, reflexes normal - Psychiatric Psychiatric exam: Present: normal affect, normal mood - Skin Skin exam: Present: warm, dry, intact, normal color. Absent: rash ED Course Vital Signs 01/01/22 03:17 Temperature 98.4 F Pulse Rate 95 H Respiratory 18 Rate Blood Pressure 142/88 O2 Sat by Pulse 99 Oximetry ED Medical Decision Making - Medical Decision Making This is a 46-year-old -[place] female with a history of morbid obesity, chronic low back pain with sciatica, chronic osteoarthritis, hypertension and asthma presents to the ED with complaint of acute exacerbation of her chronic hip pain for the last 2 weeks, worse in the last 2 days. Patient states that the pain is constant and persistent and especially worse in the morning when she wakes up or during movement. Patient states that the pain is typical of her chronic pain due to her chronic osteoarthritis. In the ED, patient is alert and oriented x3 and is not in any distress. Patient was treated for pain in the ED. Patient will discharge home on medications for pain and advised to follow- up with her primary care physician in 7 to 10 days for reevaluation or return to the ED immediately if symptoms get worse. - Differential Diagnosis Chronic osteoarthritis; hip bursitis; chronic pain; muscle spasm; Critical care attestation.: If time is entered above; I have spent that time in minutes in the direct care of this critically ill patient, excluding procedure time. ED Disposition Clinical Impression: Chronic osteoarthritis, Chronic pain syndrome, Arthralgia of right hip Disposition: HOME / SELF CARE / HOMELESS Is pt being admited?: No Does the pt Need Aspirin: No Condition: Stable Instructions: Osteoarthritis, Hip Pain, Musculoskeletal Pain, Arthritis, [id number], Joint Pain, [id number] Additional Instructions: Take medication with food, plenty of fluids, and follow-up with your primary care physician in 7 to 10 days for reevaluation. Return to the ED immediately if symptoms get worse. Prescriptions: predniSONE [Deltasone] 60 mg PO QDAY #15 tab Ibuprofen [Motrin] 800 mg PO Q8HR PRN #60 tablet PRN Reason: Pain , Severe (7-10) methOCARBAMOL [Robaxin TAB] 750 mg PO BID PRN #60 tab PRN Reason: muscle spasm traMADoL [Ultram] 50 mg PO Q6HR PRN #12 tablet PRN Reason: Pain Referrals: [facility] [Provider Group] - 7-10 days Time of Disposition: 04:44 Print Language: CENTRAL AFRICAN
[2022-01-01 05:11] VITALS: BP 148/72
== END 2022-01-01 05:11 | disposition home or self-care (01) ==
LOC: ED 03:03
DX: M19.90 Unspecified osteoarthritis, unspecified site (principal); G89.29 Other chronic pain; M25.551 Pain in right hip; I10 Essential (primary) hypertension; J45.909 Unspecified asthma, uncomplicated; Z88.6 Allergy status to analgesic agent; Z91.02 Food additives allergy status; Z91.040 Latex allergy status; Z79.899 Other long term (current) drug therapy
CPT/HCPCS: 96372; 99282; J1100; J1885